=== PATIENT | male | born 1985 | race Caucasian/White ===

== ENCOUNTER 2021-02-09 01:16 | Emergency (ER) | payer MEDICAID ==
[~2021-02-09] VITALS: Ht 205.7 cm; Wt 82.0 kg
[2021-02-09] MEDS ORDERED: OLANZAPINE 10 MG/VIAL IM STA (01:26)
[2021-02-09] MEDS ORDERED: DIPHENHYDRAMINE 50MG/ML VIAL IM STA (01:26)
[2021-02-09 03:50] VITALS: BP 126/79
[2021-02-09 03:59] LABS: *AMPHETAMINES SCREEN URINE PRESUMTIVE POSITIVE (NEGATIVE); *BARBITURATES SCREEN URINE NEGATIVE (NEGATIVE); *BENZODIAZEPINES SCREEN URINE NEGATIVE (NEGATIVE); CANNABINOID URINE SCREEN PRESUMTIVE POSITIVE (NEGATIVE)
[2021-02-09 04:00] LABS: *COCAINE SCREEN URINE NEGATIVE (NEGATIVE); METHADONE URINE SCREEN NEGATIVE (NEGATIVE); OPIATES URINE SCREEN NEGATIVE (NEGATIVE); PHENCYCLIDINE URINE SCREEN NEGATIVE (NEGATIVE)
== END 2021-02-09 03:55 | disposition home or self-care (01) ==
LOC: ER 01:38
DX: F15.10 Other stimulant abuse, uncomplicated (principal); F41.9 Anxiety disorder, unspecified
CPT/HCPCS: 80305; 96372; 99284; J1200; J3490